=== PATIENT | male | born 1995 | race Caucasian/White ===

== ENCOUNTER 2018-03-03 18:48 | Emergency (ER) | payer SELFPAY ==
[2018-03-03] MEDS ORDERED: Ibuprofen 800 MG TAB ONE (20:02)
[2018-03-03] MEDS ORDERED: Acetaminophen 500 MG TAB ONE (20:02)
--- NOTE | 2018-03-03 20:22 | RAD ---
RIGHT ANKLE THREE VIEWS: History: 22-year-old male with history of right foot and ankle pain following a trip and fall. FINDINGS: Medial and lateral soft tissue swelling. No evidence for acute fracture or dislocation. IMPRESSION: Soft tissue swelling without fracture or dislocation. POS: [facility]
== END 2018-03-03 20:10 | disposition home or self-care (01) ==
LOC: ERS 18:48
DX: S93.401A Sprain of unspecified ligament of right ankle, initial encounter (principal); F17.210 Nicotine dependence, cigarettes, uncomplicated; W19.XXXA Unspecified fall, initial encounter

== ENCOUNTER 2019-02-27 20:47 | Emergency (ER) | payer SELFPAY ==
[2019-02-27] MEDS ORDERED: HYDROcodone/Acetaminophen 10/325 mg Tablet ONE (21:13)
== END 2019-02-27 21:42 | disposition home or self-care (01) ==
LOC: ERS 20:47
DX: H66.91 Otitis media, unspecified, right ear (principal); H60.91 Unspecified otitis externa, right ear; F17.210 Nicotine dependence, cigarettes, uncomplicated
CPT/HCPCS: 99282

== ENCOUNTER 2019-11-01 08:40 | Emergency (ER) | payer SELFPAY | END 2019-11-01 09:06 | disposition home or self-care (01) | LOC: ERS 08:40 | DX: K02.9 Dental caries, unspecified (principal); R22.0 Localized swelling, mass and lump, head; F17.210 Nicotine dependence, cigarettes, uncomplicated | CPT/HCPCS: 99283 ==

== ENCOUNTER 2020-04-26 07:25 | Emergency (ER) | payer OTHER, SELFPAY ==
[2020-04-26] MEDS ORDERED: Dexamethasone 4 MG TAB ONE ×2 (07:36)
[2020-04-26 13:07] LABS: SARS-CoV-2 MS2 Positive; SARS-CoV-2 N Gene Negative; SARS-CoV-2 S Gene Negative; SARS-CoV-2 by NAA Not Detected (NotDetected); SARS-CoV-2 orf1ab Negative
== END 2020-04-26 08:49 | disposition home or self-care (01) ==
LOC: ERS 07:25
DX: J02.9 Acute pharyngitis, unspecified (principal); I10 Essential (primary) hypertension; Z20.822 Contact with and (suspected) exposure to COVID-19; F17.210 Nicotine dependence, cigarettes, uncomplicated
CPT/HCPCS: 87081; 87430; 87635; 99283; J8540; U0003

== ENCOUNTER 2021-02-19 22:13 | Emergency (ER) | payer SELFPAY ==
[2021-02-19] MEDS ORDERED: Boostrix 0.5 ML (Tdap) VIAL ONE (22:38)
== END 2021-02-19 23:10 | disposition home or self-care (01) ==
LOC: ERS 22:13
DX: S91.341A Puncture wound with foreign body, right foot, initial encounter (principal); F17.210 Nicotine dependence, cigarettes, uncomplicated; W45.0XXA Nail entering through skin, initial encounter; Z23 Encounter for immunization
CPT/HCPCS: 90471; 90715